=== PATIENT | female | born 1965 | race Caucasian/White ===

== ENCOUNTER → 2017-06-04 | Outpatient (CLI) | payer BC | END | disposition home or self-care (01) | LOC: KCIC MRI 15:07 | DX: M12.851 Other specific arthropathies, not elsewhere classified, right hip (principal); M12.852 Other specific arthropathies, not elsewhere classified, left hip; M54.16 Radiculopathy, lumbar region; N83.201 Unspecified ovarian cyst, right side | CPT/HCPCS: 72148; 73502 ==